=== PATIENT | male | born 1940 | race Caucasian/White ===

== ENCOUNTER 2016-11-15 01:26 | Inpatient (IN) | payer OTHER, MEDICARE ==
[~2016-11-15] VITALS: Ht 180.3 cm; Wt 99.8 kg
[~2016-11-15 01:26] MED LIST: AMLODIPINE BESY10 M1 PO; ASPIRIN325 M2 PO; GLIPIZIDE5 M2 PO; HYDRALAZINE HCL25 M1 PO; IRBESARTAN150 M1 PO; METFORMIN HCL1000 M1 PO; PRAVACHOL80 M1 PO; TOPROL XL100 M1 PO; ZETIA10 M1 PO; ZYRTEC10 M3 PO
--- NOTE | 2016-11-15 08:19 | Admission Core Measures ---
Admission Meds I reviewed the following Meds: Current Medications Sig/Ilsa Start time Last Medication Dose Stop Time Status Admin Acetaminophen 975 MG ONCE 11/15 NR (Tylenol) 11/15 2358 Cefazolin Sodium 2,000 MG ONCE 11/15 NR (Kefzol-Ancef Inj) 11/15 2358 Oxycodone HCl 10 MG ONCE 11/15 NR (Roxicodone) 11/15 2358 Ropivacaine 500 ML ONCE ONE 11/15 0815 AC (NAROPIN) 11/17 1014 ON-Q Ball 1 BAG Acute Coronary Syndrome Inclusion Criteria ACS Diagnosis No Inpatient Core Measures LDL Reminder: If No, please order W/I first 24hr of stay Congestive Heart Failure Inclusion Criteria CHF Diagnosis No Cerebrovascular accident Inclusion Criteria CVA/TIA Diagnosis No Inpatient Core Measures Bedside Swallow Eval Reminder: If BSE failed, place ST order Antithrombotic Reminder: Order Antithrombotic Medication by end of day 2 Antithrombotic Reminder: Document Reason Antithrombotic Not ordered by end of day 2 AFIB/Flutter Reminder: If Present, add to problem list AFIB/Flutter Reminder: Order Anticoag Medication for pts with AFIB/Flutter Atherosclerosis Reminder: If Present, add to problem list LDL Reminder: If No, please order W/I first 24hr of stay PT Order Reminder: If No, please order Venous thromboembolism Inpatient Core Measures VTE Risk Factors: Age > 40, Surgery No [facility] VTE prophylaxis d/t No contraindications No VTE Pharm Prophylaxis d/t No contraindications Inclusion Criteria - Per Current guidelines, there needs to be overlap - treatment for the first 5 days of Warfarin therapy. - Parenteral Anticoagulation (IV or SC) needs to be - given along with Warfarin therapy. VTE Diagnosis No VTE Type NONE VTE Confirmed by (Test) NONE Problem List As ranked by this Provider includes Assessment & Plan 1. S/P total knee arthroplasty HOME MEDS Home Med List Amlodipine Besylate 10 MG TABLET 1 TAB PO DAILY HTN (Reported) Aspirin (Aspirin*) 325 MG TABLET 1 TAB PO DAILY CAD (Reported) Cetirizine HCl (Zyrtec) 10 MG TABLET 1 TAB PO DAILY ALLERGIES (Reported) Ezetimibe (Zetia) 10 MG TABLET 1 TAB PO NIGHTLY CHOLESTEROL (Reported) Glipizide 5 MG TABLET 1 TAB PO NIGHTLY DM II (Reported) Hydralazine HCl 25 MG TABLET 1 TAB PO BID HTN (Reported) Irbesartan 150 MG TABLET 1 TAB PO NIGHTLY CAD (Reported) Metformin HCl 1,000 MG TABLET 1 TAB PO BID DM II (Reported) Metoprolol Succ XL (Toprol XL) 100 MG TAB.ER.24H 1 TAB PO NIGHTLY CAD ( Reported) Pravastatin Sodium (Pravachol) 80 MG TABLET 1 TAB PO NIGHTLY CHOLESTEROL ( Reported)
[2016-11-15] MEDS ORDERED: ASPIRIN325 M2 PO (08:37)
[2016-11-15] MEDS ORDERED: DILAUDID2 M1 PO (08:37)
[2016-11-15] MEDS ORDERED: COLACE100 M1 PO (08:37)
[2016-11-15] MEDS ORDERED: MIRALAX17 G1 PO (08:37)
[2016-11-15] MEDS ORDERED: MS CONTIN15 M2 PO (08:37)
--- NOTE | 2016-11-15 08:44 | Patient Discharge Instructions ---
Discharge Instructions General Discharge Information You were seen/treated for: Left knee degenerative joint disease You had these procedures: Left total knee arthroplasty Watch for these problems: Significantly increased pain, difficulty ambulating, temperatures over 101 Increased redness or drainage from incision No bath, but you may shower: Yes Other wound care: Daily dry dressing change Special Instructions: See printed information booklet Diet Continue normal diet: Yes Activity Activity Self Limited: Yes Other activity limits: Ambulate with walker as instructed by physical therapy No driving or operating machinery until off pain medications and okay with your surgeon Acute Coronary Syndrome Inclusion Criteria At DC or during hospital stay patient has or had the following: ACS DIAGNOSIS No Discharge Core Measures Meds if any: Prescribed or Continued at Discharge Meds if any: NOT Prescribed or Continued at Discharge Congestive Heart Failure Inclusion Criteria At DC or during hospital stay patient has or had the following: CHF DIAGNOSIS No Discharge Core Measures Meds if any: Prescribed or Continued at Discharge Meds if any: NOT Prescribed or Continued at Discharge Cerebrovascular accident Inclusion Criteria At DC or during hospital stay patient has or had the following: CVA/TIA Diagnosis No Discharge Core Measures Meds if any: Prescribed or Continued at Discharge Meds if any: NOT Prescribed or Continued at Discharge Venous thromboembolism Inclusion Criteria VTE Diagnosis No VTE Type NONE VTE Confirmed by (Test) NONE Discharge Core Measures - Per Current guidelines, there needs to be overlap - treatment for the first 5 days of Warfarin therapy. - If discharged on Warfarin prior to 5 days of - overlap therapy, the patient will need to be - assessed for post discharge needs including - *Post discharge parental anticoagulation - *Warfarin and/or parental anticoagulation education - *Follow up date to check INR post discharge At least 5 days overlap therapy as Inpatient No Meds if any: Prescribed or Continued at Discharge Note: Overlap Therapy is Warfarin and Anticoagulant Meds if any: NOT Prescribed or Continued at Discharge
--- NOTE | 2016-11-15 08:56 | Surg Short-stay <48hrs Dis Sum ---
Visit Information Visit Dates Admission Date: 11/15/16 Discharge Date: 11/17/16 Surgical Short Stay DC Summary Admission Diagnosis: Left knee degenerative joint disease Final Diagnosis: Same Procedure(s): Left total knee arthroplasty Summary/Significant Findings: The patient was admitted on 11/15/2016. He was brought to the operating theater where he underwent a left total knee arthroplasty. Postoperatively the patient progressed as expected, he worked with physical therapy adequately, and his pain was well-controlled. The patient's laboratory studies and vitals remained stable. He was started on aspirin for anticoagulation and DVT prophylaxis. The patient was discharged with an uneventful hospital course. Condition at Discharge: Stable Discharge Disposition: home health services Discharge instructions provided to patient/family: Yes Post discharge follow-up plan: Call the office to be seen in 6 weeks or earlier if needed.
--- NOTE | 2016-11-15 11:00 | NUR ---
ARRIVED TO FLOOR FROM PACU. A & O X 3. O2 2L IN PLACE. VSS. DENIES PAIN AT THIS TIME. ON-Q PUMP TO LEFT ADDUCTOR CANAL. +CMS TO LLE. AMBULATED WITH PHYSICAL THERAPY USING ROLLING WALKER WITH SUPERVISION. IVF INFUSING. EXCORIATED AREA NOTED TO BUTTOCKS, PER PT, APPLIES CREAMS AT TIMES. NO OPEN AREAS. PER PT, DID NOT TAKE ANY HOME MEDICATIONS TODAY. LIST VERIFIED WITH , ALL HOME MEDS ACTIVELY ORDERED. ORIENTED TO JUAN R SYSTEM. WILL MONITOR.
[2016-11-15 11:09] VITALS: BP 150/88
--- NOTE | 2016-11-15 12:54 | PN- Orthopedic ---
Subjective Subjective: The patient was seen this afternoon postoperatively. He reports that his pain is under adequate control and has no other complaints at the current time. He has ambulated with physical therapy and has yet to void postoperatively. Objective Vital Signs and I&Os Vital Signs Date Time Temp Pulse Resp B/P B/P Pulse O2 O2 Flow FiO2 Mean Ox Delivery Rate 11/15 1142 Room Air 11/15 1109 97.5 76 16 150/88 96 Nasal 2.0L Cannula Intake & Output 11/15 0811/15 0000 11/14 0811/14 0000 Intake Total Output Total Balance Patient 220 lb Weight Weight Reported by Patient Measurement Method Physical Exam: Gen.: Alert and in no obvious distress Skin: Warm and dry Cardiac: S1-S2 regular Pulmonary: Breath sounds are equal with good exchange Extremities: Bilateral lower extremities are warm without calf tenderness or significant edema. Gross motor and sensory are intact. Left lower extremity surgical dressing is clean, dry, and intact. There is an On-Q pain pump 1. Assessment/Plan Assessment/Plan Assessment: 76-year-old male status post left arthroplasty. Postoperative the patient is progressing as expected and his pain is under adequate control. Plan: Out of bed with physical therapy Monitor for postoperative void GI and DVT prophylaxis Start aspirin 325 by mouth twice a day first dose tonight Resume home medications 2 doses of postoperative prophylactic antibiotics Continue current pain regiment Advance diet as tolerated Incentive spirometry Core Measures/Miscellaneous Venous Thromboembolism VTE Risk Factors: Age > 40, Surgery VTE Contraindications: No Contraindications VTE Diagnosis: No VTE Type: NONE VTE Confirmed by (Test): NONE Beta George Is Beta George a Home Med? Yes If Yes, Was This Ordered Today? Yes Antibiotics Is Patient on Antibiotics? Yes If Yes: prophylaxis
[2016-11-15 13:04] VITALS: BP 145/82
[2016-11-15 14:11] VITALS: BP 140/80
[2016-11-15 15:00] VITALS: BP 142/70
--- NOTE | 2016-11-15 15:41 | Operative Report ---
Operative/Inv Procedure Report Surgery Date: 11/15/16 Name of Procedure: Left total knee replacement Pre-Operative Diagnosis: Primary left knee DJD Post-Operative Diagnosis: Same Estimated Blood Loss: 50ml to 100ml Surgeon/Service Learning Coordinator: JESSICA JARVIS,JANELLE Bran Anesthesia: general endotracheal tube Operative/Procedure Note Note: Description of Procedure: The patient was taken to the operating room and positively identified. After induction of general anesthesia and administration of appropriate pre-operative antibiotics, the patient was positioned supine on the operating room table and all bony prominences were well padded. A well-padded pneumatic tourniquet was placed on the left upper thigh. After performing a surgical timeout, the left lower extremity was prepped and draped in the usual sterile fashion. After exsanguination with Esmarch the tourniquet was inflated to 250mm of mercury. A standard medial parapatellar approach was made to the knee. This was carried down through skin and subcutaneous tissue to the level of the fascia. Meticulous hemostasis was maintained with Bovie electrocautery. The extensor mechanism and patellar retinaculum were opened sharply and the patella was everted. The infrapatellar fat was resected in order to improve exposure. Osteophytes were trimmed from the patella and femoral condyles and the patella was re-everted and tucked laterally. A medial release was performed and the cruciate ligaments were resected. The tibia was then subluxed anteriorly. Utilizing the appropriate extra-medullary guide, the proximal tibia was trimmed perpendicular to the long axis of the tibial shaft. Attention was then turned to the femur. After opening the medullary canal, the distal femoral cut was made in 6 degrees of valgus utilizing the appropriate intra-medullary guide. The extension gap was checked and found to be appropriate. The femur was then sized and the remainder of the femoral cuts were made with a size 5 4-in-1 femoral cutting guide. The flexion gap was checked and found to be symmetric and appropriate. The knee was then trialed with a size 5 femoral component, a size 5 tibial component and a size 11 mm polyethylene insert. The patella was trimmed to accept an A 35 patella. This yielded excellent range of motion, stability and patellar tracking. All trial components were removed and the knee was copiously irrigated with sterile saline. All components were cemented into place with [place] Simplex cement. All the components were of the [place] [employer] knee system of the above stated sizes. The knee was again irrigated after cementation. The extensor mechanism and patellar retinaculum were repaired using interrupted #1 vicryl suture. The skin was re-approximated with 2-0 vicryl and closed with june. A sterile dressing was applied, the tourniquet was deflated, the patient was awakened and taken to the recovery room in satisfactory condition.
[2016-11-15 16:59] VITALS: BP 142/68
[2016-11-15 21:07] VITALS: BP 144/78
[2016-11-16 01:05] VITALS: BP 136/74
[2016-11-16 05:09] VITALS: BP 150/80
[2016-11-16 07:45] LABS: ABSOLUTE BASOPHIL COUNT 0 /CUMM (0.0-0.2); ABSOLUTE EOSINOPHIL COUNT 0 /CUMM (0.0-0.7); ABSOLUTE LYMPH COUNT 0.9 /CUMM (1.2-3.4); ABSOLUTE MONOCYTE COUNT 1.1 /CUMM (0.10-0.60); BASOPHIL % 0 % (0.0-2.0); EOSINOPHIL % 0 % (0-5); GRANULOCYTE % 81.6 % (42.2-75.2); HEMATOCRIT 36.6 % (42-52); MEAN CORPUSCULAR HGB CONC 33.2 G/DL (33.0-37.0); MEAN CORPUSCULAR VOLUME 87.5 FL (80.0-94.0); MEAN PLATELET VOLUME 8.1 FL (7.4-10.4); PLATELET COUNT 236 /CUMM (130-400); RBC DISTRIBUTION WIDTH 14.3 % (11.5-14.5); RED BLOOD CELL CT 4.18 /CUMM (4.70-6.10)
--- NOTE | 2016-11-16 07:45 | PN- Orthopedic ---
Subjective Subjective: OOB in chair [place] good yesterday with ambulation - feels like he moved too much and now not feeling as well. Complaining of L knee pain - not resolved well with meds No nausea, tolerating diet +voiding Objective Vital Signs and I&Os Vital Signs Date Time Temp Pulse Resp B/P B/P Pulse O2 O2 Flow FiO2 Mean Ox Delivery Rate 11/16 0509 97.7 77 20 150/80 96 Room Air 11/16 0105 98.0 79 20 136/74 94 Room Air 11/15 2225 78 140/80 11/15 2225 78 140/80 11/15 2224 78 140/80 11/15 2107 98.9 95 20 144/78 96 Room Air 11/15 1659 98.2 93 20 142/68 95 Room Air 11/15 1500 98.8 90 20 142/70 93 Room Air 11/15 1411 97.7 87 20 140/80 96 11/15 1304 98.0 82 20 145/82 94 11/15 1142 Room Air 11/15 1109 97.5 76 16 150/88 96 Nasal 2.0L Cannula Intake & Output 11/16 0800 11/16 0000 11/15 1600 11/15 0800 11/15 0000 11/14 1600 Intake Total 1000 750 Output Total 800 680 350 Balance -800 320 400 Intake, IV 300 150 Intake, Oral 700 600 Output, Urine 800 680 350 Patient 220 lb Weight Weight Reported by Patient Measurement Method Physical Exam: vss, afebrile General: alert and oriented times three Chest: clear anteriorly bilaterally, RRR Abd: soft, good bs Ext: positive sensate, no calf tenderness, LLE wrapped in TOMASZ - dressing dry On Q in place Assessment/Plan Assessment/Plan 76 yo male pod 1 s/p L TKR Pain management - add MS contin at this time, will follow up and increased dilaudid if needed Morphine IV for breakthrough PT-WBAT On Q per anesthesia Core Measures/Miscellaneous Venous Thromboembolism VTE Risk Factors: Age > 40, Surgery VTE Contraindications: No Contraindications VTE Diagnosis: No VTE Type: NONE VTE Confirmed by (Test): NONE Beta George Is Beta George a Home Med? Yes If Yes, Was This Ordered Today? Yes Antibiotics Is Patient on Antibiotics? No If Yes: prophylaxis
[2016-11-16 10:36] VITALS: BP 142/78
[2016-11-16 13:52] VITALS: BP 132/80
--- NOTE | 2016-11-16 21:17 | NUR ---
NURSING NOTE: PT REFUSING AMBIEN AT THIS TIME. RN WILL MONITOR.
[2016-11-16 22:37] VITALS: BP 130/50
[2016-11-17 06:30] VITALS: BP 142/70
[2016-11-17 08:31] VITALS: BP 140/80
--- NOTE | 2016-11-17 10:29 | PN- Orthopedic ---
Subjective Subjective: Reports improved pain control. cleared by PT. Tolerating diet. No nausea. Passing flatus. Voiding well. Ambulating with rolling walker. Denies dizziness. No shortness of breath. No chest pains. Feels comfortable going home this afternoon with his family. Objective Vital Signs and I&Os Vital Signs Date Time Temp Pulse Resp B/P B/P Pulse O2 O2 Flow FiO2 Mean Ox Delivery Rate 11/18 0731 90 140/80 11/17 0830 90 140/80 11/17 0630 98.8 87 20 142/70 92 Room Air 11/16 2237 98.9 90 20 130/50 92 Room Air 11/17 2115 84 160/78 11/16 211 84 160/78 11/16 211 84 160/78 11/16 1600 Room Air 11/16 1352 98.7 80 20 132/80 96 11/16 1036 97.8 60 18 142/78 97 Intake & Output 11/17 1600 11/17 0800 11/17 0000 11/16 1600 11/16 0800 11/16 0000 Intake Total 200 400 625 515 7995 Output Total 285 742 0080 680 Balance -100 400 -320 -860 320 Intake, IV 100 300 Intake, Oral 200 400 450 240 700 Number 0 0 Bowel Movements Output, Urine 818 667 4808 680 Physical Exam: General - alert & oriented x 3. comfortable. no acute distress. Lungs - clear bilaterally. no w/r/r. Cardiac - s1s2 Abdomen - soft. active bowel sounds. nondistended. nontender. Extremities - warm bilaterally. left leg dressing changed. incision well approximated with june. no erythema or exudates. calves soft and nontender b/ l. nvi. on q removed earlier. Current Medications: Current Medications Sig/Ilsa Start time Last Medication Dose Route Stop Time Status Admin Amlodipine Besylate 10 MG DAILY 11/16 999 AC 11/17 PO 0831 Aspirin 325 MG BID 11/15 2199 AC 11/17 PO 0830 Docusate Sodium 100 MG DAILY 11/16 1000 AC 11/17 PO 0831 Ezetimibe 10 MG DAILY 11/16 1000 AC 11/17 PO 0831 Hydralazine HCl 25 MG BID 11/15 2199 AC 11/17 PO 0830 Hydromorphone HCl 2 MG ONCE ONE 11/16 1515 DC 11/16 IV 11/16 1516 1609 Hydromorphone HCl 4 MG Q4P PRN 11/16 1515 AC 11/17 PO 0623 Hydromorphone HCl 8 MG Q4P PRN 11/16 1515 AC PO Hydromorphone HCl 2 MG Q4P PRN 11/15 1115 DC 11/16 PO 1332 Hydromorphone HCl 4 MG Q4P PRN 11/15 1115 DC 11/15 PO 2137 Insulin Human Regular 4 UNITS .STK-MED ONE 11/16 1711 DC IV 11/16 171 Insulin Human Regular 1 UNITS .STK-MED ONE 11/16 1325 DC IV 11/16 1326 Insulin Human Regular 0 TIDAC/HS 11/15 1200 AC 11/17 SC 0830 Loratadine 10 MG DAILY 11/16 1000 AC 11/17 PO 0831 Losartan Potassium 50 MG AT BEDTIME 11/15 2200 AC 11/16 PO 211 Metoprolol Succinate 100 MG AT BEDTIME 11/15 2200 AC 11/16 PO 2116 Morphine Sulfate 15 MG BID 11/16 0745 AC 11/17 PO 0830 Morphine Sulfate 2 MG Q3P PRN 11/15 1115 AC IV Omeprazole 20 MG DAILY AC 11/16 0700 AC 11/17 PO 0623 Ondansetron HCl 4 MG Q6P PRN 11/15 1115 AC IV Patient Medication 1 ED ONE ONE 11/16 1415 DC Teaching ED 11/16 1416 Polyethylene Glycol 17 GM DAILY 11/16 1000 AC 11/17 PO 0830 Pravastatin Sodium 80 MG 1700 11/15 1700 AC 11/16 PO 1713 Zolpidem Tartrate 5 MG AT BEDTIME PRN 11/16 1515 AC 11/16 PO 2225 Results Last 48 Hours of Labs: Laboratory Tests 11/16 0635 Chemistry Sodium (137 - 145 mmol/L) 139 Potassium (3.5 - 5.1 mmol/L) 4.4 Chloride (98 - 107 mmol/L) 102 Carbon Dioxide (22 - 30 mmol/L) 24 Anion Gap (5 - 16) 13 BUN (9 - 20 mg/dL) 19 Creatinine (0.7 - 1.2 mg/dL) 1.2 Estimated GFR (>60 ml/min) 59 L BUN/Creatinine Ratio (7 - 25 %) 15.8 Hematology CBC w Diff NO MAN DIFF REQ WBC (4.8 - 10.8 /CUMM) 11.0 H RBC (4.70 - 6.10 /CUMM) 4.18 L Hgb (14.0 - 18.0 G/DL) 12.1 L Hct (42 - 52 %) 36.6 L MCV (80.0 - 94.0 FL) 87.5 MCH (27.0 - 31.0 PG) 29.0 RDW (11.5 - 14.5 %) 14.3 Plt Count (130 - 400 /CUMM) 236 MPV (7.4 - 10.4 FL) 8.1 Gran % (42.2 - 75.2 %) 81.6 H Lymphocytes % (20.5 - 51.1 %) 8.4 L Monocytes % (1.7 - 9.3 %) 10.0 H Eosinophils % (0 - 5 %) 0 Basophils % (0.0 - 2.0 %) 0 L Absolute Granulocytes (1.4 - 6.5 /CUMM) 9.0 H Absolute Lymphocytes (1.2 - 3.4 /CUMM) 0.9 L Absolute Monocytes (0.10 - 0.60 /CUMM) 1.1 H Absolute Eosinophils (0.0 - 0.7 /CUMM) 0 Absolute Basophils (0.0 - 0.2 /CUMM) 0 PUBS MCHC (33.0 - 37.0 G/DL) 33.2 Assessment/Plan Assessment/Plan This 76 year old white male with hx htn, cad, dm, hld, is POD#2 s/p L TKR pain control improved dressing changed on-q removed cleared by PT asa - dvt ppx d/c home today will d/w Core Measures/Miscellaneous Venous Thromboembolism VTE Risk Factors: Age > 40, Surgery VTE Contraindications: No Contraindications VTE Diagnosis: No VTE Type: NONE VTE Confirmed by (Test): NONE Beta George Is Beta George a Home Med? Yes If Yes, Was This Ordered Today? Yes Antibiotics Is Patient on Antibiotics? No If Yes: prophylaxis
== END 2016-11-17 15:30 | disposition home health service (06) | DRG 470 ==
LOC: SDA 01:26 → 2NA 01:26 → SDA 07:00 → ENRESERV 10:10 → 2NA 10:50 → ENPENDDIS 11-17 10:53 → 2NA 11-17 15:30
PROVIDERS: Physician Assistant Surgical; ADMIT Orthopaedic Surgery
PROC: 0SRD0J9 Replacement of Left Knee Joint with Synthetic Substitute, Cemented, Open Approach (ICD-10-PCS; principal; 2016-11-15)
DX: M17.12 Unilateral primary osteoarthritis, left knee (principal); E11.9 Type 2 diabetes mellitus without complications; I10 Essential (primary) hypertension; G47.33 Obstructive sleep apnea (adult) (pediatric); I25.10 Atherosclerotic heart disease of native coronary artery without angina pectoris; Z95.1 Presence of aortocoronary bypass graft; E78.5 Hyperlipidemia, unspecified; I25.2 Old myocardial infarction; Z87.891 Personal history of nicotine dependence; I73.9 Peripheral vascular disease, unspecified; Z79.84 Long term (current) use of oral hypoglycemic drugs
CPT/HCPCS: 2NAP; 82436; 88305; 97110-GO; 97116-GO; 97161-GP; 97530-GO; C1713; C9399; J0131; J0690; J1815; J2405; J2795; J7042; J7508